=== PATIENT | female | born 1945 | race African-American/Black ===

== ENCOUNTER 2017-05-29 19:04 | Emergency (ER) | payer MEDICARE, OTHER, MEDICAID ==
[~2017-05-29] VITALS: Ht 170.2 cm; Wt 56.7 kg
[~2017-05-29 19:04] MED LIST: IBUPROFEN600 MG ORAL; NKM; TRAMADOL HCL50 MG ORAL
[2017-05-29 19:30] VITALS: BP 148/75
[2017-05-29] MEDS ORDERED: Norco 5mg/325mg tab ORAL ONE (19:30)
[2017-05-29] MEDS ORDERED: Acetaminophen 500mg (ES) tab ORAL ONE (19:45)
--- NOTE | 2017-05-29 19:46 | Emergency Room Report ---
History of Present Illness General Chief Complaint: Upper Extremity Injury Source: Patient (Elva Reed) Present Illness HPI 71-year-old female presents to the emergency department complaining of progressive 10 out of 10 in severity localized pain to the right wrist and right hand status post mechanical trip and fall at 5 AM this morning. Patient states she fell on outstretched arm in order to break her fall. Patient denies hitting her head she denies loss of consciousness. Patient states initially she felt fine however throughout the day she has had progressive pain and some swelling. Denies numbness tingling or loss of sensation or gross motor movements of the extremities, incontinence of bowel or bladder. Denies CP, Palpitations, LOC, AMS, dizziness, Changes in Vision, Sensation, paresthesias, or a sudden severe headache. (Elva Reed) Allergies: Coded Allergies: No Known Allergies (Unverified , 02/20/13) Patient History Past Medical History: see triage record Past Surgical History: none Pertinent Family History: none Reviewed Nursing Documentation: PMH: Agreed, PSxH: Agreed (Elva Reed) Nursing Documentation-PMH Past Medical History: No Stated History (Elva Reed) Review of Systems All Other Systems: negative except mentioned in HPI (Elva Reed) Physical Exam Vital Signs Date Time Temp Pulse Resp B/P (MAP) Pulse Ox O2 Delivery O2 Flow Rate FiO2 05/29/17 19:07 97.9 57 20 153/75 100 Room Air Sp02 EP Interpretation: reviewed, normal General Appearance: no apparent distress, alert, GCS 15, non-toxic Head: normocephalic, atraumatic ENT: hearing grossly normal, normal voice Neck: full range of motion Respiratory: lungs clear, normal breath sounds, speaking full sentences Cardiovascular #1: regular rate, rhythm, normal capillary refill Cardiovascular #2: 2+ radial (R) Rectal: deferred Musculoskeletal: back normal, gait/station normal, normal range of motion, tender - TTP to the right wrist and metacarpals of the right hand. pt. has positive snuff box tenderness. mild swelling noted to the lateral right wrist. pt. is NVI Neurologic: alert, oriented x3, responsive, motor strength/tone normal, sensory intact, speech normal Skin: normal color, no rash, warm/dry, well hydrated (Elva Reed) Medical Decision Making PA Attestation Dr. Molina is my supervising Physician whom patient management has been discussed with. (Elva Reed) Medicare Attestation Lawrence, Roma Molina MD hereby attest that the medical record entry accurately reflects signatures/notations that I made in my capacity as MD when I treated/ diagnosed the above listed Medicare beneficiary. I attest that this information is true, accurate and complete to the best of my knowledge. I understand that any falsification, omission, or concealment of material fact may subject me to administrative, civil, or criminal liability. This patient warrants hospital admission for extreme of age and has a condition that cannot be treated as outpatient. (Roma Molina M.D.) Diagnostic Impression: Primary Impression: Sprain of wrist, right Qualified Codes: S63.501A - Unspecified sprain of right wrist, initial encounter Additional Impression: Scaphoid area tenderness ER Course 71-year-old female presents to the emergency department complaining of progressive 10 out of 10 in severity localized pain to the right wrist and right hand status post mechanical trip and fall at 5 AM this morning. Patient states she fell on outstretched arm in order to break her fall. Patient denies hitting her head she denies loss of consciousness. Patient states initially she felt fine however throughout the day she has had progressive pain and some swelling. Denies numbness tingling or loss of sensation or gross motor movements of the extremities, incontinence of bowel or bladder. Denies CP, Palpitations, LOC, AMS, dizziness, Changes in Vision, Sensation, paresthesias, or a sudden severe headache. Ddx considered but are not limited to Fracture, dislocation, contusion, Sprain/ Strain/Spasm, Scaphoid occult fx just to name a few. Vital signs: are WNL, pt. is afebrile H&PE are most consistent with musculoskeletal injury will perform imaging to r/ o fractures/dislocations. ORDERS: - X-ray Right Hand & Wrist : ED INTERVENTIONS: - Pt. declined [place] -Tylenol 1 gram Thumb Spika Splint applied to the right hand/wrist by parking enforcement technician. Pt. remains neurovascularly intact. - Right arm Sling applied by parking enforcement technician. Pt. remains neurovascularly intact. -Discussed with patient that she needs to keep the splint on and follow up with economic specialist for repeat imaging to rule out occult scaphoid fracture. Patient requested numbing patches at one point she did state that she would take the splint off and apply the patch and now wear the splint. Discussed with patient that it is very important that she keeps the splint on to avoid any applications a focal fracture is present. R.N. was also notified and told to encourage patient to keep splint on as well DISCHARGE: At this time pt. is stable for d/c to home. Will provide printed patient care instructions, and any necessary prescriptions. Care plan and follow up instructions have been discussed with the patient prior to discharge. (Elva Reed) ER Course I have reviewed the PA's interpretation of Xray results and agree with findings. (Roma Molina M.D.) Other X-Ray Diagnostic Results Other X-Ray Diagnostic Results #1: X-Ray ordered: Right Wrist # of Views/Limited Vs Complete: 3 View Indication: Pain EP Interpretation: Yes PA Xray: Interpretation reviewed, by supervising MD, and agrees with findings. Interpretation: no dislocation, no soft tissue swelling, no fractures Impression: No acute disease Electronically Signed by: Elva Choe Other X-Ray Diagnostic Results #2: X-Ray ordered: Right Hand # of Views/Limited Vs Complete: 3 View Indication: Pain EP Interpretation: Yes PA Xray: Interpretation reviewed, by supervising MD, and agrees with findings. Interpretation: no dislocation, no soft tissue swelling, no fractures Impression: No acute disease Electronically Signed by: Elva Reed PA-C (Elva Reed P.ALisa) Last Vital Signs Date Time Temp Pulse Resp B/P (MAP) Pulse Ox O2 Delivery O2 Flow Rate FiO2 05/29/17 19:30 97.9 78 20 148/75 100 Room Air (Elva Reed P.ALisa) Disposition: HOME, SELF-CARE Condition: Stable Scripts Lidocaine (Lidoderm) 1 Each Adh..patch 1 PATCH TOPIC DAILY, #7 PATCH 0 Refills Patch(es) may remain in place for up to 12 hours in any 24-hour period. Prov: Elva Reed 05/29/17 Acetaminophen* (TYLENOL EXTRA STRENGTH*) 500 Mg Tablet 500 MG ORAL Q6H, #20 TAB 0 Refills Prov: Elva Reed 05/29/17 Patient Instructions: Wrist Sprain Additional Instructions: Take medications as directed. Follow up with an Brake Lining Driller in 3-5 days, If symptoms persist repeat imaging will be warranted to rule out an occult fracture. --Please review list of primary care clinics, if you do not already have a primary care provider Return sooner to ED if new symptoms occur, or current symptoms become worse. - Please note that this Emergency Department Report was dictated using [employer] and maintenance supervisor technology software, occasionally this can lead to erroneous entry secondary to interpretation by the dictation equipment. Elva Reed May 29, 2017 19:46 Roma Molina M.D. May 29, 2017 22:05
[2017-05-29] MEDS ORDERED: TYLENOL EXTRA500 MG ORAL (19:48)
[2017-05-29] MEDS ORDERED: LIDODERM700 M1 TOPIC (19:56)
--- NOTE | 2017-05-30 11:35 | Diagnostic Imaging Report ---
Clinical Indication:PAIN Technique: 3 views of the right wrist Comparison: None Findings: No acute fractures. No dislocations. The joint spaces are preserved. Bones appear osteoporotic. Impression: No acute process
--- NOTE | 2017-05-30 11:37 | Diagnostic Imaging Report ---
Indication: PAIN, status post fall Technique: 3 views right hand Comparison: none Findings: No acute fractures. No dislocations. Joint spaces are preserved. Small subchondral cysts are seen at the base of the third middle phalanx and head of the second proximal phalanx, probably secondary to degenerative change. Bones appear somewhat demineralized. Impression: No acute process Mild degenerative changes, as described
== END 2017-05-29 20:10 | disposition home or self-care (01) ==
LOC: EMR 19:38
DX: S63.501A Unspecified sprain of right wrist, initial encounter (principal); W01.0XXA Fall on same level from slipping, tripping and stumbling without subsequent striking against object, initial encounter; Y93.9 Activity, unspecified; Y92.9 Unspecified place or not applicable
CPT/HCPCS: 99284